=== PATIENT | female | born 1995 | race Caucasian/White ===

== ENCOUNTER 2018-06-14 09:45 | Inpatient (IN) | payer OTHER ==
[~2018-06-14] VITALS: Ht 165.1 cm; Wt 104.3 kg
[2018-06-14 16:13] LABS: CLARITY URINE CLEAR (CLEAR); COLOR URINE ORANGE (YELLOW); KETONES URINE NEGATIVE (NEGATIVE); LEUKOCYTE ESTERASE URINE TRACE (NEGATIVE); NITRITE URINE NEGATIVE (NEGATIVE); OCCULT BLOOD URINE 3+ (NEGATIVE); PH URINE 6.5 (4.5-8.0); PROTEIN URINE TRACE (NEGATIVE); SPECIFIC GRAVITY URINE 1.019 (1.005-1.030); UROBILINOGEN URINE 0.2 E.U./dL (0.2-1.0)
[2018-06-14] MEDS ORDERED: DIPHENHYDRAMINE 50MG/ML VIAL IV ONE (22:30)
[2018-06-14] MEDS ORDERED: SODIUM CHLORIDE 0.9% 1000ML BAG (SEPSIS BOLUS) IV ONE (22:30)
[2018-06-14] MEDS ORDERED: DEXAMETHASONE 10 MG/ML VIAL IV ONE (22:30)
[2018-06-14 23:00] LABS: BASOPHILS % 0.4 % (0.0-2.0); EOSINOPHILS % 3.7 % (0.0-5.0); HEMATOCRIT. 44.3 % (36.0-48.0); HEMOGLOBIN. 15.4 g/dL (12.0-16.0); LYMPHOCYTES % 14.7 % (20.0-50.0); MEAN CORPUSCULAR HEMOGLOBIN 28.7 pg (28.0-32.0); MEAN CORPUSCULAR VOLUME 82.8 fL (81.0-99.0); MEAN PLATELET VOLUME 9.9 fl (7.4-10.4); MONOCYTES % 3.6 % (2.0-8.0); NEUTROPHILS % 77.6 % (40.0-76.0); PLATELET 280 x1000/uL (130-400); RED BLOOD CELL COUNT 5.35 mill/uL (4.2-5.4); RED CELL DISTRIBUTION WIDTH 13.4 % (11.6-14.6)
[2018-06-14 23:08] LABS: CHLORIDE 101 mEq/L (98-107)
[2018-06-14 23:10] LABS: INR 1.1; PARTIAL THROMBOPLASTIN TIME 29.9 sec (23.4-31.0); PROTHROMBIN TIME 10.8 sec (9.1-11.1)
[2018-06-15] MEDS ORDERED: LEVOFLOXACIN 500MG PREMIX 100 ML IV ONE
[2018-06-15] MEDS ORDERED: CEFTRIAXONE 1 G PREMIX 50 ML IV ONE
[2018-06-15] MEDS ORDERED: MAGNESIUM/ALUMINUM HYDROXIDE/SIMETHICONE 30ML UDC PO PRN (00:45)
[2018-06-15] MEDS ORDERED: CEFTRIAXONE 1 G PREMIX 50 ML IV SCH ×2 (00:45→15:00)
[2018-06-15] MEDS ORDERED: ACETAMINOPHEN 325MG TABLET PO PRN (00:45)
[2018-06-15] MEDS ORDERED: CLONIDINE 0.1MG TABLET PO PRN (00:45)
[2018-06-15] MEDS ORDERED: HYDROCODONE/ACETAMINOPHEN 5/325MG TABLET PO PRN (00:45)
[2018-06-15] MEDS ORDERED: GUAIFENESIN 200MG/10ML SUGAR FREE UDC PO PRN (00:45)
[2018-06-15] MEDS ORDERED: IPRATROPIUM/ALBUTEROL 0.5-3(2.5)MG/3ML NEB INH PRN (00:45)
[2018-06-15] MEDS ORDERED: ONDANSETRON HCL 4MG/2ML INJ IV PRN (00:45)
[2018-06-15] MEDS ORDERED: DOCUSATE SODIUM 100MG CAPSULE PO PRN (00:45)
[2018-06-15 00:58] LABS: HCG SCREEN NEGATIVE
[2018-06-15] MEDS ORDERED: KETOROLAC 30MG/ML VIAL IV STA (01:09)
[2018-06-15] MEDS ORDERED: MORPHINE SULFATE 4 MG/ML CPJ (NOT FOR IM USE) IV STA (01:09)
[2018-06-15] MEDS ORDERED: ONDANSETRON HCL 4MG/2ML INJ IV STA (01:09)
[2018-06-15 02:02] LABS: CHLORIDE 104 mEq/L (98-107)
[2018-06-15 10:00] VITALS: BP 138/76
[2018-06-15 12:20] VITALS: BP 118/60
[2018-06-15 12:46] VITALS: BP 110/55
[2018-06-15] MEDS: DIPHENHYDRAMINE 50MG/ML VIAL IV PRN ×2 (13:18→18:34)
[2018-06-15] MEDS: ENOXAPARIN 30MG/0.3ML SYR SUBCUT SCH ×2 (14:57→23:04)
[2018-06-15] MEDS: SODIUM CHLORIDE 0.9% 1,000 ML IV SCH (14:57)
[2018-06-15 16:00] VITALS: BP 106/51
[2018-06-15] MEDS: LORATADINE 10MG TABLET PO SCH (18:34)
[2018-06-15 20:00] VITALS: BP 98/50
[2018-06-15] MEDS: FLUTICASONE PROPIONATE 50MCG/SPRAY BOTTLE BOTHNSTRLS SCH (21:00)
[2018-06-16] VITALS: BP 97/43
[2018-06-16] MEDS ORDERED: CEFTRIAXONE 1 G PREMIX 50 ML IV SCH
[2018-06-16 04:00] VITALS: BP 109/48
[2018-06-16] MEDS: SODIUM CHLORIDE 0.9% 1,000 ML IV SCH ×2 (04:44→11:05)
[2018-06-16] MEDS: DIPHENHYDRAMINE 50MG/ML VIAL IV PRN ×2 (04:44→11:05)
[2018-06-16 08:00] VITALS: BP 111/65
[2018-06-16] MEDS: LORATADINE 10MG TABLET PO SCH (09:12)
[2018-06-16] MEDS: ENOXAPARIN 30MG/0.3ML SYR SUBCUT SCH (09:12)
[2018-06-16 09:51] LABS: BASOPHILS % 0.4 % (0.0-2.0); HEMATOCRIT. 38.7 % (36.0-48.0); LYMPHOCYTES % 24.9 % (20.0-50.0); MEAN CORPUSCULAR HEMOGLOBIN 28.5 pg (28.0-32.0); MEAN PLATELET VOLUME 10.7 fl (7.4-10.4); MONOCYTES % 5.1 % (2.0-8.0); NEUTROPHILS % 64.6 % (40.0-76.0); PLATELET 230 x1000/uL (130-400); RED BLOOD CELL COUNT 4.55 mill/uL (4.2-5.4); RED CELL DISTRIBUTION WIDTH 13.7 % (11.6-14.6)
[2018-06-16] MEDS: FLUTICASONE PROPIONATE 50MCG/SPRAY BOTTLE BOTHNSTRLS SCH (11:05)
[2018-06-16] MEDS ORDERED: HYDR453.3 TP (11:10)
[2018-06-16] MEDS ORDERED: LORA10TA7 MT (11:10)
[2018-06-16] MEDS ORDERED: DIPH25CA6 MT (11:10)
[2018-06-16 12:00] VITALS: BP 94/50
[2018-06-16 12:15] LABS: CHLORIDE 109 mEq/L (98-107)
[2018-06-16 12:37] LABS: HDL CHOLESTEROL 21 mg/dL (40-59); LDL CHOLESTEROL 97 mg/dL (5-100)
[2018-06-16 14:47] VITALS: BP 94/50
[2018-06-16] MEDS ORDERED: ENOXAPARIN 30MG/0.3ML SYR SUBCUT SCH (21:00)
[2018-06-17 08:10] LABS: HIV SCREEN 4G Non Reactive (Non Reactive)
== END 2018-06-16 16:15 | disposition home or self-care (01) | DRG 113 ==
LOC: ER 09:45 → EDBEDREQDT 06-15 00:04 → EDBEDREQTM 06-15 00:04 → EDBEDREQ 06-15 00:04 → 6WST 06-15 00:19 → EDBEDREQSVC 06-15 00:20 → EDBEDREQTM 06-15 00:20 → EDBEDREQSVC 06-15 04:37 → ENRESERV 06-15 07:04
PROVIDERS: ADMIT Internal Medicine; ATTEND Internal Medicine
DX: J32.0 Chronic maxillary sinusitis (principal); E66.9 Obesity, unspecified; E87.6 Hypokalemia; Z68.38 Body mass index [BMI] 38.0-38.9, adult
CPT/HCPCS: 36415; 70486; 71045; 80048; 80061; 83036; 83605; 83880; 84145; 84443; 84484; 84703; 86038; 87389; 93005; 93970; 96374; 99285; J0696; J1100; J1200; J1650; J1885; J1956; J2270; J2405; J7030

== ENCOUNTER 2023-09-28 11:28 | Emergency (ER) | payer OTHER ==
[~2023-09-28] VITALS: Ht 165.1 cm; Wt 104.3 kg
[~2023-09-28 11:28] MED LIST: DIPH-1207 MT; LORA10TA7 MT
[2023-09-28 11:37] VITALS: BP 145/97; PULSE 80; RESP 18; TEMP 98.2; O2SAT 100
== END 2023-09-28 15:39 | disposition left against medical advice (07) ==
LOC: ER 11:28
DX: R51.9 Headache, unspecified (principal); Z53.21 Procedure and treatment not carried out due to patient leaving prior to being seen by health care provider
CPT/HCPCS: 99281